=== PATIENT | female | born 1975 | race African-American/Black ===

== ENCOUNTER 2019-11-10 12:54 | Emergency (ER) | payer OTHER, SELFPAY ==
--- NOTE | ~2019-11-10 | CT_ITS ---
EXAMINATION: CT abdomen pelvis w con DATE: 11/10/2019 14:27 INDICATION: Low abdominal pain. TECHNIQUE: Computed tomography (CT) of the abdomen and pelvis was performed with 100 mL Omnipaque 350 intravenous contrast. Automated exposure control and iterative reconstruction technique were employe d. The dose-length product was 686.68 mGy-cm. COMPARISON: None. FINDINGS: The visualized portions of the lung bases are clear without pneumonia or pleural effusion. The heart size is normal. No pericardial effusion. There is a small sliding hiatal hernia. There is a 5 mm cyst in the liver. Calcifications in the spleen are consistent with old granulomatous disease. The gallbladder, pancreas, adrenal glands, and right kidney are normal. There is a 7 mm cyst in left kidney. There are no dilated loops of bowel. The appendix is normal. Tubal ligation clips are noted. There are no pathologically enlarged lymph nodes. There is no free intraperitoneal fluid. There is mi ld lumbar and thoracic spondylosis. IMPRESSION: 1. Small sliding hiatal hernia. Reviewed, dictated and finalized at location A. ON PUNCHER
--- NOTE | ~2019-11-10 | XR_ITS ---
EXAMINATION: XR chest 2V DATE: 11/10/2019 14:05 INDICATION: Hypoxia. Weakness. TECHNIQUE: Frontal and lateral views of the chest were obtained. COMPARISON: None. FINDINGS: A calcified right lung nodule and calcified right hilar and mediastinal lymph nodes are con sistent with old granulomatous disease. No pleural effusion or pneumothorax. The heart size is normal . There are surgical clips in right neck. IMPRESSION: 1. No acute cardiopulmonary disease. Reviewed, dictated and finalized at location A. OL LUNCH MONITOR
[2019-11-10 13:01] VITALS: BP 158/112; PULSE 86; RESP 26; TEMP 36.4; O2SAT 100
--- NOTE | 2019-11-10 13:05 | ED.NAVMDI ---
HPI - Nausea/Vomiting/Diarrhea General Chief complaint: Nausea/Vomiting/Diarrhea Stated complaint: ABD PAIN Time Seen by Provider: 11/10/19 13:02 Source: patient and RN notes reviewed Mode of arrival: EMS Limitations: no limitations History of Present Illness HPI Narrative: Pt is a 44 y/o female who presents to the ED, via EMS, with c/o emesis which began at 0700 this morning. Pt states she had no symptoms last night, but awoke with them this morning. Pt reports vomiting 6 times since onset. Pt reports EMS administered some medication for her nausea without any alleviation of her nausea. She also reports nausea, upper epigastric ABD pain, and lightheadedness, but denies a fever, diarrhea, chest pain, or SOB. Pt states she did not eat anything at all yesterday, but just drank coffee and alcohol at night. She reports drinking socially. She denies anyone around her having an illness which she could have gotten. Pt reports her LNMP was 10/17/2019. Pt reports a PMHx of hypertension which she currently is on medication for. However, she denies taking her medication this morning. She also reports a PMHx of a thyroidectomy and cysts on her bilateral breasts. MD elicited complaint: vomiting Onset (ago): hour(s) (0700 this morning) Associated nausea: Yes Associated abdominal pain: Yes Location of pain: epigastric (upper) Radiation: does not radiate Pain consistency: constant Exacerbating factors: none Relieving factors: none (EMS administered medication without relief) Context: other (did not eat anything all day yesterday, but drank alcohol at night) Associated symptoms: nausea/vomiting (nausea) and other (upper epigastric ABD pain; lightheadedness) Related Data Home Medications Medication Instructions Recorded Confirmed amlodipine 11/10/19 Allergies Allergy/AdvReac Type Severity Reaction Status Date / Time No Known Allergies Allergy Unknown Verified 12/11/11 12:47 Review of Systems Review of Systems: All systems reviewed & are unremarkable except as noted in HPI and below Constitutional: Constitutional: Denies fever(s) Cardiovascular: Cardiovascular: Denies chest pain Respiratory: Respiratory: Denies dyspnea Gastrointestinal: Gastrointestinal: Reports abdominal pain (upper epigastric ABD pain), Denies diarrhea, Reports nausea and Reports vomiting Neurologic: Denies other (lightheadedness) [facility] Past Medical History Medical History (Updated 11/10/19 @ 16:16 by Ludmila Schaeffer MD) Cyst of breast GERD (gastroesophageal reflux disease) Hypertension Surgical History Surgical History (Updated 11/10/19 @ 13:19 by Ceci Mcclendon) H/O removal of cyst Social History Social History (Updated 11/10/19 @ 13:19 by Ceci Mcclendon) Smoking status: Never smoker Alcohol intake: current Gender identity (if verbalized by the patient): Female Exam Narrative: Exam Narrative: GENERAL: Well-appearing, well-nourished, and in no acute distress. HEAD: Normocephalic, atraumatic EYES: PERRLA and EOMI, conjunctiva clear without discharge THROAT:Mucous membranes moist, Oropharynx normal without erythema, exudate, peritonsillar swelling or fluctuance NECK: Supple, without lymphadenopathy or mass RESPIRATORY: No respiratory distress, Airway patent, Respirations non-labored, Clear to auscultation without rales, rhonchi or wheeze HEART: Regular rate and rhythm. No murmur heard. Normal peripheral pulses. ABDOMEN: Soft, bilateral upper quadrant, epigastric , nondistended, normal active bowel sounds. No masses. No rebound or guarding, No organomegaly. EXTREMITIES: No edema, normal strength with full range of motion. SKIN: Warm, dry, normal color without rash NEURO: Alert and oriented x3. CN 2-12 grossly intact. No focal deficits. PSYCH: Normal mood and affect. Course Reevaluation(s) Reevaluation #1: PAtient states she is still nauseated. Date: 11/10/19 Time: 14:11 Reevaluation #2: PAtient has no vomiting
[2019-11-10] MEDS: PROMETHAZINE HCL 25 MG/ML AMPUL 12.5 MG IV PUSH (13:15)
[2019-11-10] MEDS: SODIUM CHLORIDE 0.9% IV 1,000 ML 999 ML IV CONT (13:15)
[2019-11-10 13:27] LABS: Basophils Percent Auto 0.2 % (0.2-1.2); Hematocrit 38.6 % (37.0-47.0); Hemoglobin 13.2 g/dL (12.0-15.0); Immature Granulocyte Absolute 0.04 K/mm3 (0.00-0.031); Immature Granulocyte Percent A 0.4 % (0-0.5); Lymphocytes Absolute Auto 1.32 K/mm3 (0.9-3.2); Lymphocytes Percent Auto 13.8 % (18.3-44.2); Mean Corpuscular HGB Conc 34.2 g/dl (32-36); Mean Corpuscular Hemoglobin 28.4 pg (26-34); Mean Corpuscular Volume 83.2 fl (80-100); Mean Platelet Volume 10.2 fl (7.4-10.4); Monocytes Absolute Auto 0.3 K/mm3 (0.1-0.6); Monocytes Percent Auto 2.7 % (2.6-8.5); Neutrophils Absolute Auto 7.9 K/mm3 (1.3-6.7); Neutrophils Percent Auto 82.9 % (45.5-73.1); Platelet Count Result 346 k/mm3 (150-375); Red Blood Count 4.64 M/mm3 (4.2-5.4); Red Cell Distribution Width 13.2 % (11.5-14.5); White Blood Count 9.6 K/mm3 (4.5-10.0)
[2019-11-10 13:39] LABS: Alanine Aminotransferase 22 U/L (4-35); Albumin Level 4.9 g/dL (3.5-5.1); Alkaline Phosphatase 112 U/L (38-126); Aspartate Amino Transferase 36 U/L (14-36); Bilirubin,Total 0.8 mg/dL (0.2-1.3); Blood Urea Nitrogen 12 mg/dL (7-17); Calcium 9.4 mg/dL (8.4-10.2); Carbon Dioxide 21 mmol/L (22-30); Chloride 103 mmol/L (98-107); Estimated Glomerular Filt Rate > 60; Glucose 127 mg/dL (65-105); Lipase 68 U/L (23-300); Potassium 3.9 mmol/L (3.4-5.0); Sodium 141 mmol/L (137-145)
--- NOTE | 2019-11-10 14:12 | ECG_ITS ---
Measurements Intervals [place] Rate: 87 P: 64 FL: 178 QRS: -12 QRSD: 85 T: 66 QT: 386 QTc: 465 Interpretive Statements SINUS RHYTHM CANNOT RULE OUT SEPTAL INFARCT, AGE INDETERMINATE ABNORMAL ECG Electronically Signed On 11-10-2019 14:57:31 CHAINSTITCH FELLED SEAM OPERATOR by Kana Gill D.O.
[2019-11-10 14:19] LABS: Add Urine Microscopic? YES; Appearance Urine Clear (Clear); Bilirubin Urine Negative (Negative); Blood Urine Negative (Negative); Color Urine Yellow (Yellow); Glucose Urine UA Negative (Negative); Ketones Urine 1+ mg/dL (Negative); Leukocyte Esterase Ur Negative LEU/UL (Negative); Mucus Urine Rare /lpf; Nitrate Urine Negative (Negative); Protein Urine 1+ mg/dL (Negative); RBC Urine 0-2 /hpf (0-2); Specific Grav Ur 1.012 (1.001-1.035); Squamous Epithelial Cell Urine Occasional /hpf (Few); WBC Urine 0-3 /hpf
[2019-11-10] MEDS: PANTOPRAZOLE SODIUM IV 40 MG VIAL IV PUSH (14:19)
[2019-11-10] MEDS: METOCLOPRAMIDE HCL INJ 10 MG/2 ML VIAL IV PUSH (14:19)
[2019-11-10 14:56] VITALS: BP 144/85; PULSE 87
[2019-11-10 14:58] VITALS: BP 134/88
[2019-11-10 14:59] VITALS: BP 123/93; PULSE 100
[2019-11-10] MEDS: ONDANSETRON INJ 4 MG/2 ML VIAL IV PUSH (15:41)
[2019-11-10 16:31] VITALS: BP 141/86; PULSE 88; RESP 16; O2SAT 99
== END 2019-11-10 16:32 | disposition home or self-care (01) ==
PROVIDERS: Emergency Provider General Practice; PCP Internal Medicine
DX: R11.2 Nausea with vomiting, unspecified (principal); K21.9 Gastro-esophageal reflux disease without esophagitis; I10 Essential (primary) hypertension
CPT/HCPCS: 36415; 71046; 74177; 80053; 81001; 81025; 83690; 85025; 93005; 96361; 96374; 96375; 99284; C9113; J0131; J1200; J2405; J2550; J2765; J7030; Q9967

== ENCOUNTER 2019-11-11 08:14 | Emergency (ER) | payer OTHER, SELFPAY ==
[2019-11-11 08:20] VITALS: BP 150/73; PULSE 86; RESP 23; TEMP 36.7; O2SAT 99
--- NOTE | 2019-11-11 08:24 | ED.WEAKNESS ---
HPI - Weakness General Chief complaint: Weakness Stated complaint: weakness Time Seen by Provider: 11/11/19 08:17 Source: patient Mode of arrival: ambulatory Limitations: no limitations History of Present Illness HPI Narrative: A 44 y/o female presents to the ED with c/o generalized weakness. Pt states that she was seen at [place] [facility] yesterday for N/V and ABD pain. She notes that at her ED visit, her CT scan was negative and she was sent home with a prescription for her N/V. Pt adds that her N/V has since subsided, but the ABD pain is still severe. She reports numbness and tingling in her hands and feet and states that her hands are constricting. Pt denies blood in her stool. She has a PMHx of HTN and GERD. Pt has been noncompliant with her medications for the last 2 days due to the N/V. MD Complaint: generalized weakness Onset (ago): day(s) (1) Duration: constant Location: generalized Context: recent illness Associated symptoms: nausea/vomiting (Resolved) and other (Numbness and tingling in hands and feet, hands constricting, ABD pain) Related Data Home Medications Medication Instructions Recorded Confirmed amlodipine 11/10/19 acetaminophen [Acetaminophen Extra 1,000 mg PO Q6H PRN 11/11/19 11/11/19 Strength] naproxen 500 mg PO DAILY 11/11/19 Allergies Allergy/AdvReac Type Severity Reaction Status Date / Time No Known Allergies Allergy Unknown Verified 12/11/11 12:47 Review of Systems Review of Systems: All systems reviewed & are unremarkable except as noted in HPI and below Gastrointestinal: Gastrointestinal: Reports abdominal pain, Denies hematochezia, Reports nausea (Resolved) and Reports vomiting (Resolved) Musculoskeletal: Musculoskeletal: Reports other (Hands constricting ) Neurologic: Reports numbness (Hands and feet) and Reports tingling (Hands and feet) [facility] Past Medical History Medical History Cyst of breast GERD (gastroesophageal reflux disease) Hypertension Surgical History Surgical History H/O removal of cyst Social History Social History Smoking status: Never smoker Alcohol intake: current Gender identity (if verbalized by the patient): Female Exam Const: General: healthy appearing and no acute distress Nutritional Appearance: well nourished HENMT: Mouth: Yes lip normal and Yes moist mucous membranes Eyes: Conjunctivae: conjunctivae normal Pupils: Equal, round and reactive pupils present Resp: Effort & Inspection: normal respiratory effort Auscultation: clear to auscultation bilaterally Cardio: Rate: regular rate Rhythm: regular rhythm Heart sounds: no murmurs GI: GI Palp: Yes Soft to palpation and Yes Tenderness to palpation present (GI) (Epigastric) Auscultation: normal bowel sounds Back/Spine/Pelvis: Back: other (Full ROM) Skin: General skin exam: normal color, dry skin and other (Warm) Neuro: General: patient oriented x3 (Alert) Speech: normal speech Extrem: General: full ROM Psych: Mental Status: mental status grossly normal Affect: Anxious affect present Course Vital Signs Vital signs: Vital Signs Temperature 36.7 C 11/11/19 08:20 Pulse Rate 86 11/11/19 08:20 Respiratory Rate 23 H 11/11/19 08:20 Blood Pressure 150/73 H 11/11/19 08:20 Pulse Oximetry 99 11/11/19 08:20 Temperature 36.7 C 11/11/19 08:20 Pulse Rate 57 L 11/11/19 11:35 Respiratory Rate 14 11/11/19 11:35 Blood Pressure 150/79 H 11/11/19 11:35 Pulse Oximetry 100 11/11/19 11:35 MDM - Weakness Differential Diagnosis Differential diagnosis: Likely anemia, dehydration and other (GERD, gastritis) Medical Records Attestation: I reviewed the patient's medical records. Lab Data Attestation: I reviewed the patient's lab results. Result diagrams: 11/11/19 08:49 11/11/19 08:49 Mary
[2019-11-11 09:01] LABS: Basophils Percent Auto 0.1 % (0.2-1.2); Eosinophils Percent Auto 0.1 % (0-4.4); Hematocrit 39.9 % (37.0-47.0); Hemoglobin 13.4 g/dL (12.0-15.0); Immature Granulocyte Absolute 0.09 K/mm3 (0.00-0.031); Immature Granulocyte Percent A 1.1 % (0-0.5); Lymphocytes Absolute Auto 1.33 K/mm3 (0.9-3.2); Lymphocytes Percent Auto 15.8 % (18.3-44.2); Mean Corpuscular HGB Conc 33.6 g/dl (32-36); Mean Corpuscular Volume 83.3 fl (80-100); Mean Platelet Volume 10.4 fl (7.4-10.4); Monocytes Absolute Auto 0.4 K/mm3 (0.1-0.6); Monocytes Percent Auto 4.2 % (2.6-8.5); Neutrophils Absolute Auto 6.6 K/mm3 (1.3-6.7); Neutrophils Percent Auto 78.7 % (45.5-73.1); Platelet Count Result 349 k/mm3 (150-375); Red Blood Count 4.79 M/mm3 (4.2-5.4); Red Cell Distribution Width 13.3 % (11.5-14.5); White Blood Count 8.4 K/mm3 (4.5-10.0)
[2019-11-11] MEDS: DICYCLOMINE HCL INJ 20 MG/2 ML VIAL IM (09:10)
[2019-11-11] MEDS: PROMETHAZINE HCL 25 MG/ML AMPUL 12.5 MG IV PUSH (09:10)
[2019-11-11] MEDS: PANTOPRAZOLE SODIUM IV 40 MG VIAL IV PUSH (09:10)
[2019-11-11] MEDS: SODIUM CHLORIDE 0.9% IV 1,000 ML 999 ML IV CONT (09:11)
[2019-11-11 09:31] LABS: Alanine Aminotransferase 33 U/L (4-35); Alkaline Phosphatase 117 U/L (38-126); Aspartate Amino Transferase 47 U/L (14-36); Bilirubin,Total 0.9 mg/dL (0.2-1.3); Blood Urea Nitrogen 12 mg/dL (7-17); Calcium 9.7 mg/dL (8.4-10.2); Carbon Dioxide 17 mmol/L (22-30); Chloride 97 mmol/L (98-107); Estimated CRCL calculation 75 ml/min; Estimated Glomerular Filt Rate > 60; Glucose 122 mg/dL (65-105); Lipase 151 U/L (23-300); Potassium 2.7 mmol/L (3.4-5.0); Sodium 136 mmol/L (137-145)
[2019-11-11] MEDS: POTASSIUM CHLORIDE 20 MEQ PACKET (FOR LIQUID) 40 MEQ PO (09:41)
[2019-11-11 09:45] VITALS: BP 155/91; PULSE 71; RESP 17; O2SAT 99
[2019-11-11 11:35] VITALS: BP 150/79; PULSE 57; RESP 14; O2SAT 100
== END 2019-11-11 11:37 | disposition home or self-care (01) ==
PROVIDERS: Emergency Provider Emergency Medicine; PCP Internal Medicine
DX: R10.13 Epigastric pain (principal); F41.9 Anxiety disorder, unspecified; E87.6 Hypokalemia; I10 Essential (primary) hypertension; K21.9 Gastro-esophageal reflux disease without esophagitis
CPT/HCPCS: 36415; 51701; 80053; 81025; 83690; 85025; 96361; 96372; 96374; 96375; 99284; A9270; C9113; J0500; J2550; J7030

== ENCOUNTER 2020-06-15 11:58 | Inpatient (IN) | payer OTHER, SELFPAY ==
[2020-06-15] VITALS (17 sets, daily range): BP systolic 141–185; BP diastolic 82–138; PULSE 72–140; RESP 12–25; TEMP 36.4–37.1; O2SAT 93–100
--- NOTE | ~2020-06-15 | CT_ITS ---
EXAMINATION: CT brain wo con DATE: 06/15/2020 17:28 INDICATION: Vertigo TECHNIQUE: Computed tomography (CT) of the head was performed without intravenous contrast. Sagittal and coronal reconstructions were performed. The mA was adjusted according to patient size. Iterative reconstruction technique was employed. The dose-length product was 605.33 mGy-cm. COMPARISON: None FINDINGS: No acute intracranial hemorrhage, acute infarction or abnormal extra axial fluid collection. Ventricl es are normal and symmetric. No mass/mass effect. The orbits, paranasal sinuses and mastoid air cells are normal. IMPRESSION: 1. Normal head CT. Reviewed, dictated and finalized at location A. IMPRESSION: 1. Normal head CT.
--- NOTE | ~2020-06-15 | CT_ITS ---
EXAMINATION: CT abdomen pelvis w con EXAM DATE: 06/15/2020 13:09 INDICATION: Abdominal pain, vomiting. TECHNIQUE: Spiral CT of the abdomen and pelvis was performed following intravenous injection of 100 m L Omnipaque 350. Axial, coronal and sagittal images were reviewed. The dose-length product (DLP) fo r this examination was 758.04 mGy-cm. The exposure was tailored according to patient size (auto mA e xposure control), and iterative reconstruction (ASIR) was used as additional dose reduction technique . Comparison is made to prior examination from 11/10/2019. FINDINGS: The liver, spleen, adrenal glands and pancreas are unremarkable. Gallbladder is unremarkab le. No biliary obstruction. Portal and splenic veins are patent. Kidneys enhance symmetrically. T here is no hydronephrosis. The uterus is unremarkable. Tubal ligation clips. The bladder is unremar kable. There is no retroperitoneal or pelvic lymphadenopathy. There is nonobstructing appendicolith, the appendix otherwise normal. There is small sliding gastroe sophageal hiatal hernia. There is expected amount of colonic stool. No free intraperitoneal gas. The heart is normal in size. There are no pericardial or pleural effusions. The lung bases are unr emarkable. The bones are unremarkable. IMPRESSION: 1. No acute intra-abdominal findings. 2. Small gastroesophageal hiatal hernia. Reviewed, dictated and finalized at location A.
--- NOTE | 2020-06-15 12:03 | ECG_ITS ---
Measurements Intervals [place] Rate: 98 P: 69 MN: 156 QRS: -34 QRSD: 84 T: 38 QT: 355 QTc: 454 Interpretive Statements SINUS RHYTHM WITH MARKED SINUS ARRHYTHMIA POSSIBLE RIGHT ATRIAL ENLARGEMENT POSSIBLE LEFT ATRIAL ENLARGEMENT LEFT AXIS DEVIATION BORDERLINE ST ABNORMALITY- ANTEROLATERAL LEADS BORDERLINE ECG Electronically Signed On 06-15-2020 12:32:13 CDT by Kana Gill D.O.
[2020-06-15 12:20] LABS: Basophils Percent Auto 0.2 % (0.2-1.2); Eosinophils Percent Auto 0.1 % (0-4.4); Hematocrit 49.1 % (37.0-47.0); Hemoglobin 17.7 g/dL (12.0-15.0); Immature Granulocyte Absolute 0.03 K/mm3 (0.00-0.031); Immature Granulocyte Percent A 0.3 % (0-0.5); Lymphocytes Absolute Auto 1.26 K/mm3 (0.9-3.2); Lymphocytes Percent Auto 14.1 % (18.3-44.2); Mean Corpuscular Hemoglobin 29.3 pg (26-34); Mean Corpuscular Volume 81.2 fl (80-100); Mean Platelet Volume 10.4 fl (7.4-10.4); Monocytes Absolute Auto 0.4 K/mm3 (0.1-0.6); Monocytes Percent Auto 4.5 % (2.6-8.5); Neutrophils Absolute Auto 7.2 K/mm3 (1.3-6.7); Neutrophils Percent Auto 80.8 % (45.5-73.1); Platelet Count Result 392 k/mm3 (150-375); Red Blood Count 6.05 M/mm3 (4.2-5.4); Red Cell Distribution Width 12.9 % (11.5-14.5); White Blood Count 8.9 K/mm3 (4.5-10.0)
[2020-06-15 12:37] LABS: Anion Gap 21 mmol/L (8-16); Blood Urea Nitrogen 15 mg/dL (7-17); Calcium 9.7 mg/dL (8.4-10.2); Carbon Dioxide 25 mmol/L (22-30); Chloride 88 mmol/L (98-107); Estimated CRCL calculation 64 ml/min; Estimated Glomerular Filt Rate > 60; Glucose 158 mg/dL (65-105); Potassium 2.3 mmol/L (3.4-5.0); Sodium 134 mmol/L (137-145)
--- NOTE | 2020-06-15 13:00 | ED.GENADULT ---
HPI - General Adult General Chief complaint: Dizziness Stated complaint: dizziness, vomiting Time Seen by Provider: 06/15/20 12:04 Source: patient and family History of Present Illness HPI narrative: 45 years old -[place] female presents with lower abdominal pain, dizziness and nausea. Started 3 hours prior to arrival to the emergency room. Patient denies any fever, chills, vomiting, diarrhea, constipation, vaginal bleeding or discharge or urinary symptoms Related Data Home Medications Medication Instructions Recorded Confirmed amlodipine 11/10/19 acetaminophen [Acetaminophen Extra 1,000 mg PO Q6H PRN 11/11/19 11/11/19 Strength] naproxen 500 mg PO DAILY 11/11/19 Allergies Allergy/AdvReac Type Severity Reaction Status Date / Time No Known Allergies Allergy Unknown Verified 06/15/20 12:13 Review of Systems Review of Systems: Narrative: CONSTITUTIONAL: Denies fever, chills, or sweats. EYES: Denies visual changes, redness, or discharge. ENT: Denies rhinorrhea, congestion, sore throat, or otalgia. CARDIOVASCULAR: Denies chest pain, palpitations, or edema. RESPIRATORY: Denies cough or dyspnea. GASTROINTESTINAL: Denies abdominal pain, nausea, vomiting, or diarrhea. GENITOURINARY: Denies dysuria or hematuria. SKIN: Denies rash or itching. MUSCULOSKELETAL: Denies back pain, joint pain, or myalgia. NEUROLOGIC: Denies headache, numbness, or weakness. PSYCHIATRIC: Denies anxiety or depression. [facility] Past Medical History Medical History Cyst of breast GERD (gastroesophageal reflux disease) Hypertension Surgical History Surgical History H/O removal of cyst Social History Social History Smoking status: Never smoker Alcohol intake: current Gender identity (if verbalized by the patient): Female Exam Narrative: Exam Narrative: General appearance: Well-developed, well-nourished Skin: Normal color Head: Normocephalic, nontraumatic Eyes: Clear conjunctiva ENT: Oropharynx normal, ears normal, nose normal Neck: Supple, nontender Chest and respiratory: Airway patent, no respiratory distress, no accessory muscle use Heart: Regular rate/rhythm Abdomen: Severe diffuse tenderness lower abdomen bilaterally, slight guarding, no rebound, quiet bowel sounds Vascular: Normal peripheral pulses, normal capillary refill. Musculoskeletal: Normal range of motion, nontender back Neurologic: Alert and oriented ?3, RISK CONTROL CONSULTANT is normal as tested, no gross motor deficit Course Course Emergency Course: Improving Vital Signs Vital signs: Vital Signs Temperature 37.1 C 06/15/20 12:05 Pulse Rate 105 H 06/15/20 12:05 Respiratory Rate 25 H 06/15/20 12:05 Blood Pressure 154/108 H 06/15/20 12:05 Pulse Oximetry 97 06/15/20 12:05 Temperature 37.1 C 06/15/20 12:05 Pulse Rate 83 06/15/20 13:31 Respiratory Rate 16 06/15/20 13:31 Blood Pressure 185/105 H 06/15/20 13:31 Pulse Oximetry 93 06/15/20 13:31 Medical Decision Making MDM Narrative Medical decision making narrative: Patient presents with dizziness, lower abdominal pain. My differential diagnosis is appendicitis, cholecystitis, diverticulitis, urinary tract infection, kidney stone, benign positional vertigo, electrolyte imbalance Labs, CT abdomen and pelvis with IV contrast ordered Blood work-up showed hypokalemia of unknown etiology, patient amlodipine which does not drop the potassium level, CT abdomen and pelvis showed no acute abnormality to explain patient complaint. IV fluid, potassium IV and potassium orally
[2020-06-15] MEDS: ONDANSETRON INJ 4 MG/2 ML VIAL IV PUSH ×2 (13:16→18:04)
[2020-06-15] MEDS: MORPHINE SULFATE (*CRX) 4 MG/ML INJ IV PUSH (13:16)
[2020-06-15] MEDS: SODIUM CHLORIDE 0.9% IV 1,000 ML 999 ML IV CONT (13:23)
--- NOTE | 2020-06-15 15:30 | PC.NURSE ---
Pt attempted to ambulate to bathroom with this RN assisting. Pt got right outside of room and became dizzy and weak. Wheelchair provided for patient and assisted to bathroom.
[2020-06-15] MEDS: POTASSIUM CHLORIDE 20 MEQ TABLET 40 MEQ PO (15:36)
[2020-06-15] MEDS: MECLIZINE HCL 25 MG TABLET PO (15:51)
[2020-06-15] MEDS: diazePAM (*CRX) 5 MG TABLET PO (15:51)
[2020-06-15] MEDS: LABETALOL HCL INJ 100 MG/20 ML VIAL 20 MG IV PUSH (16:21)
[2020-06-15] MEDS: SODIUM CHLORIDE 0.9% IV 1,000 ML 125 ML IV CONT (18:03)
[2020-06-15] MEDS: POTASSIUM CHLORIDE 20 MEQ TABLET.ER 40 MEQ PO (18:06)
--- NOTE | 2020-06-15 18:28 | ADMGEN ---
This patient, Hanny Heller, was admitted to Medical Room 253-01. Patient/family oriented to hospital policies and general routines including ID bracelet, bed and alarms, visiting hours, pain management, procedures, bathroom and other care routines, personal items, smoking policy, room service/diet, and visiting hours. Valuables list has been completed. Information on how to activate the Rapid Response Team has been discussed. Patient/Family are encouraged to report perceived risks to care and to ask questions if they do not understand what they are told or what they should do.
--- NOTE | 2020-06-15 19:00 | PM.IMHP ---
H&P: HPI History of Present Illness Date/Time: 06/15/20 19:00 Chief complaint: Dizzy, nausea, vomiting. Narrative: Hanny Heller is a 45-year-old female with hypertension who presented to the emergency department earlier this afternoon via private vehicle from home for evaluation of nausea, vomiting, and dizziness. On Friday she developed nausea and vomiting which has persisted since the outset. She has not been able to hold down any solid foods and she has only been able to hold down small amounts of liquid. Her abdomen is diffusely tender, which she attributes to the vomiting. A day or so after the nausea and vomiting began, she developed dizziness that sounds more like vertigo in that she describes feelings of spinning, worse with position changes. Additionally she reports chills and occasional sweats as well as a diffuse aching headache and muscle cramping, mainly in the hands and fingers. She has not been sleeping well due to ongoing nausea and vomiting as well as the vertigo. She was seen by her primary care provider on Friday and was tested for COVID, and that was negative. She denies sick contacts. No fever, sinus congestion, rhinorrhea, otalgia, or odynophagia. No cough or shortness of breath. Review of Systems Review of Systems: Narrative: Twelve systems were reviewed with pertinent positives and negatives as per HPI. Weight has been stable. She has not been able to keep down her medications. No fever. No focal weakness or paresthesias. She denies acute auditory and visual changes. No aural fullness or tinnitus. No chest pain, pleuritic pain, palpitations, or feelings of racing heart. No cough or shortness of breath. She denies edema, orthopnea, and PND. She has not had a bowel movement since Friday. Reports increasing GERD symptoms the last couple of days. Her urine has been a bit dark the last couple of days and she believe she is dehydrated. No dysuria. Except as documented, all other systems were reviewed and are negative. [facility] Past Medical History Medical History (Updated 06/15/20 @ 19:51 by Meenu Chavez PA-C) Gastroesophageal reflux Hypertension Surgical History Surgical History (Updated 06/15/20 @ 19:47 by Meenu Chavez PA-C) History of bilateral breast biopsy Benign pathology. History of thyroidectomy For thyroid goiter. Family History Family History (Updated 06/15/20 @ 19:48 by Meenu Chavez PA-C) Other Cancer Diabetes mellitus Hypertension Social History Social History (Updated 06/15/20 @ 19:49 by Meenu Chavez PA-C) Social History: Surrogate decision maker: John, . Code status:Full code. Smoking status: Former smoker Tobacco type: cigarettes Alcohol intake: current Drinks per week: 2 Substance use: former Substance use type: marijuana Additional living arrangements comments: Resides in [place] with her in 4 children. 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 Gender identity (if verbalized by the patient): Female Spiritual care concerns: No Meds Home Medications and Allergies Home Medications Medication Instructions Recorded Confirmed Type amlodipine 10 mg PO DAILY 06/15/20 06/15/20 History calcium carbonate-vitamin D3 2 tablet PO DAILY 06/15/20 06/15/20 History [Calcium 500 With D] cholecalciferol (vitamin D3) 125 mcg PO DAILY 06/15/20 06/15/20 History [Vitamin D3] multivitamin [Daily Multi-Vitamin] 1 tablet PO DAILY 06/15/20 06/15/20 History omeprazole 40 mg PO DAILY 06/15/20 06/15/20 History Allergies Allergy/AdvReac Type Severity Reaction Status Date / Time No Known Allergies Allergy Unknown Verified 06/15/20 12:13 Vital Signs Vital Signs - 24 hr 06/15/20 12:05 06/15/20 12:17 06/15/20 12:31 Temperature 98.7 F Pulse Rate 105 H 140 H 94 Respiratory Rate 25 H 14 Blood Pressure 154/108 H 142/103 H 176/115
[2020-06-15 19:08] LABS: Hematocrit 44.4 % (37.0-47.0); Hemoglobin 15.9 g/dL (12.0-15.0)
[2020-06-15 19:21] LABS: Alanine Aminotransferase 28 U/L (4-35); Albumin Level 4.8 g/dL (3.5-5.1); Alkaline Phosphatase 88 U/L (38-126); Aspartate Amino Transferase 25 U/L (14-36); Bilirubin,Total 1.5 mg/dL (0.2-1.3)
[2020-06-15 19:22] LABS: Anion Gap 12 mmol/L (8-16); Blood Urea Nitrogen 12 mg/dL (7-17); Calcium 8.6 mg/dL (8.4-10.2); Carbon Dioxide 33 mmol/L (22-30); Chloride 88 mmol/L (98-107); Estimated CRCL calculation 90 ml/min; Estimated Glomerular Filt Rate > 60; Glucose 131 mg/dL (65-105); Potassium 2.8 mmol/L (3.4-5.0); Sodium 133 mmol/L (137-145)
[2020-06-15 19:34] LABS: Hemoglobin A1C 4.8 % (<5.7)
[2020-06-15] MEDS: PANTOPRAZOLE SODIUM IV 40 MG VIAL IV PUSH (21:04)
[2020-06-16] VITALS (16 sets, daily range): BP systolic 135–182; BP diastolic 45–115; PULSE 78–111; RESP 12–20; TEMP 36.1–36.8; O2SAT 100; BMI 31.8
[2020-06-16] MEDS: ONDANSETRON INJ 4 MG/2 ML VIAL IV PUSH ×2 (03:10→08:53)
[2020-06-16 03:39] LABS: Potassium 3.4 mmol/L (3.4-5.0)
[2020-06-16 04:05] LABS: Creatinine Urine 48.9 mg/dL; Total Protein Urine Random 36 mg/dL
[2020-06-16 04:25] LABS: Potassium Urine Random 12.8 meq/L; Sodium Urine Random 44 meq/L
[2020-06-16 06:04] LABS: Hematocrit 40.4 % (37.0-47.0); Hemoglobin 14.6 g/dL (12.0-15.0); Mean Corpuscular HGB Conc 36.1 g/dl (32-36); Mean Corpuscular Hemoglobin 29.6 pg (26-34); Mean Corpuscular Volume 81.8 fl (80-100); Mean Platelet Volume 10.3 fl (7.4-10.4); Platelet Count Result 297 k/mm3 (150-375); Red Blood Count 4.94 M/mm3 (4.2-5.4); White Blood Count 7.7 K/mm3 (4.5-10.0)
[2020-06-16 06:14] LABS: Anion Gap 9 mmol/L (8-16); Blood Urea Nitrogen 8 mg/dL (7-17); Calcium 8.2 mg/dL (8.4-10.2); Carbon Dioxide 30 mmol/L (22-30); Chloride 95 mmol/L (98-107); Estimated CRCL calculation 91 ml/min; Estimated Glomerular Filt Rate > 60; Glucose 106 mg/dL (65-105); Magnesium 2.1 mg/dL (1.6-2.3); Potassium 3.2 mmol/L (3.4-5.0); Sodium 134 mmol/L (137-145)
[2020-06-16 06:47] LABS: Cortisol Baseline 9.69 ug/dL
[2020-06-16] MEDS: SODIUM CHLORIDE 0.9% IV 1,000 ML 100 ML IV CONT ×2 (07:57→20:30)
[2020-06-16] MEDS: amLODIPine BESYLATE 5 MG TABLET 10 MG PO (08:00)
[2020-06-16] MEDS: MULTIVITAMINS THERAPEUTIC TAB (*BKC) 1 TABLET PO (08:00)
[2020-06-16] MEDS: PANTOPRAZOLE SODIUM IV 40 MG VIAL IV PUSH ×2 (08:00→20:27)
[2020-06-16] MEDS: MECLIZINE HCL 12.5 MG TABLET PO ×4 (08:00→20:27)
[2020-06-16] MEDS: CHOLECALCIFEROL 1,000 UNITS TABLET 5000 UNITS PO (08:00)
--- NOTE | 2020-06-16 15:06 | PM.IMPN ---
Progress Note: A&P Assessment and Plan (1) Dehydration: Code(s): E86.0 - Dehydration Status: Acute Assessment and Plan: She has been admitted under observation for further treatment of dehydration and hypokalemia secondary to poor oral intake and vomiting over the last 4 to 5 days. Her labs and electrolytes have improved overnight with IV fluid hydration. She appears euvolemic at this time we are just slowly advancing her diet as tolerated to prevent further vomiting and recurrence of dehydration. Continue monitoring fluid status. (2) Nausea and vomiting: Code(s): R11.2 - Nausea with vomiting, unspecified Status: Acute Assessment and Plan: Most likely viral gastroenteritis in nature. No CT abdominal findings for her symptoms. She is still having some nausea in not able to advance her diet from a full liquid diet at this time. P.r.n. antiemetics given. Continue monitoring, slowly advance diet as tolerated. (3) Vertigo: Code(s): R42 - Dizziness and giddiness Status: Acute Assessment and Plan: She reported some vertigo but it is much improved today after receiving some IV fluids. She denies much dizziness at all at this time. We are continuing some meclizine for her symptoms. (4) Hypokalemia: Code(s): E87.6 - Hypokalemia Status: Acute Assessment and Plan: Patient's potassium was low this morning she was given IV K rider. Her magnesium was normal. Will recheck potassium in the morning and supplement as needed. (5) Hyperglycemia: Code(s): R73.9 - Hyperglycemia, unspecified Status: Acute Assessment and Plan: Patient's hemoglobin A1c is 4.8 which within normal range. No need to further evaluate monitor. (6) Hypertension: Code(s): I10 - Essential (primary) hypertension Status: Acute Assessment and Plan: Blood pressure has been elevated since arrival. She did take her amlodipine this morning. Most recent blood pressure was 130 systolic which is improved. Will continue monitoring blood pressure and make adjustments as necessary. (7) Gastroesophageal reflux: Code(s): K21.9 - Gastro-esophageal reflux disease without esophagitis Status: Acute Assessment and Plan: Continue PPI therapy while she is here due to her GI upset, nausea vomiting. Time Spent With Patient Time with patient: 25 - 35 minutes Subjective Date/time seen: 06/16/20 15:06 Interval history: Date of service 06/16/2020: The patient reports feeling slightly better today. She tried eat a clear liquid diet and after a few bites her as a median cream being with hematochezia strict discomfort and she became nauseous. She denies any vomiting since being admitted. She has not had a bowel movement since Friday, and does feel bloated. She does not believe she has eaten enough over the last few days to have a bowel movement so she does not feel constipated. She denies any chest pain, shortness of breath, cough, fever, chills, leg swelling, calf pain, lightheadedness, dizziness or any other symptoms at this time. Review of Systems Review of Systems: All systems reviewed & are unremarkable except as noted in HPI and below Exam Narrative: Exam Narrative: General: 45-year-old woman sitting up in bed watching TV. Appears comfortable. In no acute distress. Skin: No jaundice or cyanosis. Good skin turgor. Neck: Full range of motion. Supple. Respiratory: Lungs are clear to auscultation bilaterally. No bony chest wall tenderness. Cardiovascular: The heart has a regular rate and rhythm without murmur. Low
[2020-06-17] VITALS (8 sets, daily range): BP systolic 128–149; BP diastolic 77–97; PULSE 75–112; RESP 18; TEMP 36.3–36.5; O2SAT 100
[2020-06-17 06:14] LABS: Anion Gap 2 mmol/L (8-16); Blood Urea Nitrogen 9 mg/dL (7-17); Calcium 8.3 mg/dL (8.4-10.2); Carbon Dioxide 35 mmol/L (22-30); Chloride 99 mmol/L (98-107); Estimated CRCL calculation 80 ml/min; Estimated Glomerular Filt Rate > 60; Glucose 91 mg/dL (65-105); Potassium 3.4 mmol/L (3.4-5.0); Sodium 136 mmol/L (137-145)
[2020-06-17] MEDS: CHOLECALCIFEROL 1,000 UNITS TABLET 5000 UNITS PO (08:49)
[2020-06-17] MEDS: MECLIZINE HCL 12.5 MG TABLET PO ×2 (08:50→12:13)
[2020-06-17] MEDS: MULTIVITAMINS THERAPEUTIC TAB (*BKC) 1 TABLET PO (08:50)
[2020-06-17] MEDS: amLODIPine BESYLATE 5 MG TABLET 10 MG PO (08:50)
[2020-06-17] MEDS: PANTOPRAZOLE SODIUM IV 40 MG VIAL IV PUSH (08:55)
--- NOTE | 2020-06-17 14:30 | PM.DS ---
DS: Admitting Diagnosis Admitting Diagnosis Admitting Diagnosis: Dizzy, nausea, vomiting. DS: Discharge Diagnosis Discharge Diagnosis (1) Dehydration: Code(s): E86.0 - Dehydration Status: Acute Assessment and Plan: She has been admitted under observation for further treatment of dehydration and hypokalemia secondary to poor oral intake and vomiting over the last 4 to 5 days. Her labs and electrolytes have improved overnight with IV fluid hydration. She appears euvolemic at this time and we were able to advance diet to regular without any issues. She is feeling better and stable for discharge at this time. (2) Nausea and vomiting: Code(s): R11.2 - Nausea with vomiting, unspecified Status: Acute Assessment and Plan: Most likely viral gastroenteritis in nature. No CT abdominal findings for her symptoms. Feeling better now. NO more Nausea or vomiting. Stable for discharge. (3) Vertigo: Code(s): R42 - Dizziness and giddiness Status: Acute Assessment and Plan: She reported some vertigo prior to arrival. It is now resolved. Most likely from dehydration but we were also administering Meclizine. Will continue Meclizine PRN for dizziness. (4) Hypokalemia: Code(s): E87.6 - Hypokalemia Status: Acute Assessment and Plan: Patient's potassium was normal today. Most likely from N/V and then again from IV fluids and dilution. Will have her follow up with PCP after discharge. (5) Hyperglycemia: Code(s): R73.9 - Hyperglycemia, unspecified Status: Acute Assessment and Plan: Patient's hemoglobin A1c is 4.8 which within normal range. No need to further evaluate monitor. (6) Hypertension: Code(s): I10 - Essential (primary) hypertension Status: Acute Assessment and Plan: Blood pressure is much improved since arrival. Continue home medications. (7) Gastroesophageal reflux: Code(s): K21.9 - Gastro-esophageal reflux disease without esophagitis Status: Acute Assessment and Plan: Continue PPI DS: Summary Hospital Course Reason for hospitalization: Patient is a 45-year-old woman with a history of hypertension, GERD, who presented to emergency department with nausea, vomiting, abdominal pain and dizziness over the last 4 days. She is going to down in the last 1-2 days which is why she came to the hospital. Initial vitals showed Temperature 98.7?, elevated blood pressure 154/108, tachycardic heart rate 105, respiratory rate 25, oxygen saturation 97% on room air. Initial labs showed hemoconcentrated with a hemoglobin of 17, hematocrit at 49%, Hyponatremia and 134, hypokalemia at 2.3, creatinine was 1.0, BUN 15, and slightly elevated glucose at 158. CT abdomen pelvis showed no acute intra abdominal abnormality other than small gastroesophageal hiatal hernia. CT head due to dizziness showed normal findings. She was admitted into the hospital under observation status for dehydration, nausea/vomiting/abdominal pain for IV fluid hydration, slow advancement of her diet and monitoring of her symptoms. Please see above under each diagnosis what transpired during her admission. Status at Discharge Cognitive/behavioral status at discharge: Stable, improved. Time Spent with Patient Time attestation: Total time spent providing and/or coordinating discharge services: Time spent: Greater than 30 minutes Exam Narrative: Exam Narrative: General: 45-year-old woman laying on her left side resting. Appears comfortable. In no acute distress. Skin:
== END 2020-06-17 16:50 | disposition home or self-care (01) | DRG 641 ==
LOC: ANHED 14:54 → ANH2MED 16:29
PROVIDERS: Emergency Medicine; Physician Assistant; Admitting Provider Internal Medicine; Emergency Provider Emergency Medicine; PCP Internal Medicine; Visit Provider Physician Assistant
DX: E87.1 Hypo-osmolality and hyponatremia (principal); E87.6 Hypokalemia; D75.1 Secondary polycythemia; I10 Essential (primary) hypertension; K21.9 Gastro-esophageal reflux disease without esophagitis; R42 Dizziness and giddiness; E86.0 Dehydration; R73.9 Hyperglycemia, unspecified; Z23 Encounter for immunization
CPT/HCPCS: 36415; 70450; 74177; 80048; 80076; 82533; 82570; 83036; 83735; 84132; 84133; 84156; 84300; 84443; 85014; 85018; 85025; 85027; 90471; 90653; 93005; 96361; 96365; 96366; 96375; 99285; A9270; C9113; G0008; G0378; J0131; J2270; J2405; J3480; J7030; Q9967

== ENCOUNTER 2021-06-28 09:39 | Emergency (ER) | payer OTHER, SELFPAY ==
[2021-06-28 09:57] VITALS: BP 148/119; PULSE 83; RESP 16; TEMP 36.9; O2SAT 100
--- NOTE | 2021-06-28 10:56 | ED.ABDPAIN ---
HPI - Abdominal Pain General Chief Complaint: Abdominal Pain Stated Complaint: abd pain/vomiting Time Seen by Provider: 06/28/21 10:39 Source: patient and RN notes reviewed Mode of arrival: ambulatory Limitations: no limitations History of Present Illness HPI narrative: Patient presents today complaining of diffuse abdominal pain, nausea, vomiting x2-3 days after drinking 3 mixed drinks the night before onset. States she has not been able to keep anything down, but has been trying to drink in between her vomiting episodes. She last vomited this morning. She rates her abdominal pain 06/24. 1 year ago, she had a similar episode and was seen in the ER at [facility] and was found to have hypokalemia. Since she has been vomiting, she has been unable to keep down her amlodipine. BP upon arrival was 148/119. Related Data Home Medications Medication Instructions Recorded Confirmed amlodipine 10 mg PO DAILY 06/15/20 06/15/20 calcium carbonate-vitamin D3 2 tablet PO DAILY 06/15/20 06/15/20 [Calcium 500 With D] cholecalciferol (vitamin D3) 125 mcg PO DAILY 06/15/20 06/15/20 [Vitamin D3] multivitamin [Daily Multi-Vitamin] 1 tablet PO DAILY 06/15/20 06/15/20 omeprazole 40 mg PO DAILY 06/15/20 06/15/20 Allergies Allergy/AdvReac Type Severity Reaction Status Date / Time No Known Allergies Allergy Unknown Verified 06/15/20 12:13 Review of Systems Review of Systems: CONSTITUTIONAL: Denies body aches, fever, chills, or sweats. EYES: Denies visual changes, redness, or discharge. ENT: Denies rhinorrhea, congestion, sore throat, or otalgia. CARDIOVASCULAR: Denies chest pain, palpitations, or edema. RESPIRATORY: Denies cough or dyspnea. GASTROINTESTINAL: Denies diarrhea. +Nausea, vomiting, abdominal pain GENITOURINARY: Denies dysuria or hematuria. SKIN: Denies rash, itching, or wounds. MUSCULOSKELETAL: Denies back pain, joint pain, or myalgia. NEUROLOGIC: Denies headache, numbness, tingling, or weakness. PSYCH: Denies depression or anxiety. [facility] Past Medical History Medical History Gastroesophageal reflux Hypertension Surgical History Surgical History History of bilateral breast biopsy Benign pathology. History of thyroidectomy For thyroid goiter. Family History Family History Other Cancer Diabetes mellitus Hypertension Social History Social History Social History: Surrogate decision maker: John, . Code status:Full code. Smoking status: Former smoker Tobacco type: cigarettes Alcohol intake: current Drinks per week: 2 Substance use: former Substance use type: marijuana Additional living arrangements comments: Resides in [place] with her in 4 children. 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 Gender identity (if verbalized by the patient): Female Spiritual care concerns: No Comments At time of signature, I have reviewed and agree with nursing past medical, surgical, social and family history unless otherwise noted. Please see nursing chart for further information. There is no relevant family history pertinent to the presenting complaint Exam Narrative: GENERAL: Well-appearing, well-nourished, and in no acute distress. HEAD: Normocephalic, atraumatic. EYES: EOMI. No redness or drainage. Conjunctivae normal. ENT: Mucous membranes pink and tacky. Nares clear. No rhinorrhea. TMs normal bilaterally. Throat normal. Uvula midline. NECK: Normal AROM. Supple. No lymphadenopathy. CHEST: No respiratory distress. Clear to auscultation. HEART: Regular rate and rhythm. No murmur appreciated. Normal peripheral pulses. ABDOMEN: Soft, nondistended, no
[2021-06-28] MEDS: PROMETHAZINE HCL 25 MG/ML AMPUL IM (10:59)
== END 2021-06-28 11:25 | disposition short-term general hospital (02) ==
PROVIDERS: Emergency Provider Nurse Practitioner; PCP Internal Medicine
DX: R10.9 Unspecified abdominal pain (principal); R11.2 Nausea with vomiting, unspecified; Z87.891 Personal history of nicotine dependence; K21.9 Gastro-esophageal reflux disease without esophagitis; I10 Essential (primary) hypertension
CPT/HCPCS: 96372; 99213; G0463; J2550

== ENCOUNTER 2021-06-28 11:24 | Emergency (ER) | payer OTHER, SELFPAY ==
[2021-06-28 11:36] VITALS: BP 154/95; PULSE 64; RESP 14; TEMP 36.7; O2SAT 100
[2021-06-28 11:50] LABS: Basophils Percent Auto 0.1 % (0.2-1.2); Hematocrit 42.7 % (37.0-47.0); Hemoglobin 15.1 g/dL (12.0-15.0); Immature Granulocyte Absolute 0.04 K/mm3 (0.00-0.031); Immature Granulocyte Percent A 0.5 % (0-0.5); Lymphocytes Absolute Auto 2.02 K/mm3 (0.9-3.2); Lymphocytes Percent Auto 24.1 % (18.3-44.2); Mean Corpuscular HGB Conc 35.4 g/dl (32-36); Mean Corpuscular Hemoglobin 29.7 pg (26-34); Mean Corpuscular Volume 84.1 fl (80-100); Mean Platelet Volume 10.3 fl (7.4-10.4); Monocytes Absolute Auto 0.4 K/mm3 (0.1-0.6); Monocytes Percent Auto 5.3 % (2.6-8.5); Neutrophils Absolute Auto 5.9 K/mm3 (1.3-6.7); Platelet Count Result 365 k/mm3 (150-375); Red Blood Count 5.08 M/mm3 (4.2-5.4); Red Cell Distribution Width 13.3 % (11.5-14.5); White Blood Count 8.4 K/mm3 (4.5-10.0)
[2021-06-28 12:08] LABS: Alanine Aminotransferase 23 U/L (4-35); Albumin Level 5.1 g/dL (3.5-5.1); Alkaline Phosphatase 98 U/L (38-126); Anion Gap 12 mmol/L (8-16); Aspartate Amino Transferase 33 U/L (14-36); Blood Urea Nitrogen 14 mg/dL (7-17); Calcium 9.4 mg/dL (8.4-10.2); Carbon Dioxide 31 mmol/L (22-30); Chloride 92 mmol/L (98-107); Estimated Glomerular Filt Rate > 60; Glucose 112 mg/dL (65-110); Lipase 113 U/L (23-300); Potassium 2.9 mmol/L (3.4-5.0); Sodium 135 mmol/L (137-145)
[2021-06-28 12:19] LABS: Add Urine Microscopic? YES; Appearance Urine Clear (Clear); Bilirubin Urine Negative (Negative); Blood Urine 2+ (Negative); Color Urine Yellow (Yellow); Glucose Urine UA Negative (Negative); Ketones Urine 1+ mg/dL (Negative); Leukocyte Esterase Ur Negative LEU/UL (Negative); Mucus Urine Rare /lpf; Nitrate Urine Negative (Negative); Protein Urine 2+ mg/dL (Negative); Specific Grav Ur 1.015 (1.001-1.035); Squamous Epithelial Cell Urine Rare /hpf (Few); Urobilinogen Urine Negative mg/dL (<2.0); WBC Urine 0-3 /hpf
--- NOTE | 2021-06-28 12:34 | PC.NURSE ---
patient states that the wait is too long. was sent by urgent care who was said to have told patient that there would be a room waiting for her so she felt as though she should not have to wait
== END 2021-06-29 05:09 | disposition left against medical advice (07) ==
PROVIDERS: Emergency Provider Emergency Medicine; PCP Internal Medicine
DX: R11.2 Nausea with vomiting, unspecified (principal)
CPT/HCPCS: 36415; 80053; 81001; 81025; 83690; 85025; 99199

== ENCOUNTER 2024-11-09 09:27 | Emergency (ER) | payer BC, SELFPAY ==
[2024-11-09 09:44] VITALS: BP 125/75; PULSE 97; RESP 16; TEMP 37.2; O2SAT 98
--- NOTE | 2024-11-09 10:16 | ED.URI ---
HPI - URI/Sore Throat General Chief Complaint: Upper Respiratory Infection Stated Complaint: BO,tired,cough,bodyaches,stomach pressure Time Seen by Provider: 11/09/24 10:37 Source: patient, RN notes reviewed and old records reviewed Mode of arrival: ambulatory Limitations: no limitations History of Present Illness HPI Narrative: Patient presents with complaints of flu like symptoms that began yesterday. She has been taking [id number] medications intermittently. She denies any injury or trauma, she is not in any obvious distress. Related Data Home Medications ?Medication ?Instructions ?Recorded ?Confirmed ?Last Taken ?Type amlodipine 10 mg tablet 10 mg PO DAILY 06/15/20 06/15/20 Unknown History calcium 500 mg (as 2 tablet PO DAILY 06/15/20 06/15/20 Unknown History carbonate)-vitamin D3 10 mcg (400 unit) tablet (Calcium 500 With D) cholecalciferol (vitamin D3) 125 125 mcg PO DAILY 06/15/20 06/15/20 Unknown History mcg (5,000 unit) tablet (Vitamin D3) multivitamin (Daily Multi-Vitamin 1 tablet PO DAILY 06/15/20 06/15/20 Unknown History tablet) omeprazole 40 mg capsule,delayed 40 mg PO DAILY 06/15/20 06/15/20 Unknown History release Allergies Allergy/AdvReac Type Severity Reaction Status Date / Time No Known Allergies Allergy Unknown Verified 06/15/20 12:13 Review of Systems Review of Systems: All systems reviewed & are unremarkable except as noted in HPI and below Constitutional: Constitutional: Reports no additional constitutional complaints, Reports body ache(s), Reports chills, Reports fever(s), Reports headache(s) and Reports lethargy ENT: Reports system reviewed and no additional complaints, except as documented, Reports nasal congestion, Reports nasal discharge and Reports sore throat Cardiovascular: Cardiovascular: Reports no additional cardiovascular complaints Respiratory: Respiratory: Reports no additional respiratory complaints and Reports cough Gastrointestinal: Gastrointestinal: Reports no additional gastrointestinal complaints PMFSH Past Medical History Medical History Gastroesophageal reflux Hypertension Surgical History Surgical History History of bilateral breast biopsy Benign pathology. History of thyroidectomy For thyroid goiter. Family History Family History Other Cancer Diabetes mellitus Hypertension Social History Social History Social History: Surrogate decision maker: John . Code status:Full code. Smoking status: Former smoker Tobacco type: cigarettes Alcohol intake: current Drinks per week: 2 Substance use: former Substance use type: marijuana Additional living arrangements comments: Resides in [place] with her in 4 children. 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 Gender identity (if verbalized by the patient): Female Spiritual care concerns: No Comments At the time of my signature, I reviewed and agree with the nursing past medical, surgical, social, and family history. There is no relevant family history pertinent to the patient complaint. Exam Const: General: cooperative, no acute distress, alert and awake Orientation/consciousness: oriented to person, oriented to place and oriented to time HENMT: Head: normal to inspection Ears: TM's normal bilaterally Mouth: Yes moist mucous membranes Throat: posterior oropharynx abnormal erythema Resp: Effort & Inspection: normal respiratory effort and able to speak in complete sentences Auscultation: clear to auscultation bilaterally, no crackles, no rales, no rhonchi and no wheezes Cardio: Palpation: normal PMI Rate: regular rate Rhythm: regular rhythm Heart sounds: S1 normal heart sound present and S2 normal heart sound present Neuro: General: oriented to person, oriented to place and oriented to time Cranial nerves: Yes CN's II-XII intact bilaterally Psych: Appearance: grossly normal Thought process: Normal thought process present Insight: Good insight present (Psych) Judgement: Good judgement present (Psych) Course Course Level of Care: Express Care Visit Vital Signs Vital signs: Vital Signs Temperature 98.9 F 11/09/24 09:44 Pulse Rate 97 11/09/24 09:44 Respiratory Rate 16 11/09/24 09:44 Blood Pressure 125/75 11/09/24 09:44 Pulse Oximetry 98 11/09/24 09:44 Oxygen Delivery Room Air 11/09/24 09:44 Temperature 98.9 F 11/09/24 09:44 Pulse Rate 97 11/09/24 09:44 Respiratory Rate 16 11/09/24 09:44 Blood Pressure 125/75 11/09/24 09:44 Pulse Oximetry 98 11/09/24 09:44 Oxygen Delivery Room Air 11/09/24 09:44 Reviewed MDM - URI/Sore Throat MDM Narrative Medical decision making narrative: Negative COVID, negative flu, negative strep. Symptoms likely viral in origin. Supportive care measures discussed. Discharge instructions reviewed with patient, as well as provided in writing per nursing staff. The instructions also include specific and strict return/GO TO THE ER as well as f/u information. All questions have been answered, and the patient deny any further questions with discharge and discharge plan. Some parts of this dictation were generated by voice recognition software and may contain typographical and/or grammatical inaccuracies. Differential Diagnosis Differential diagnosis: Likely upper respiratory infection, otitis media, viral infection, influenza and pharyngitis Medical Records Attestation: I reviewed the patient's medical records. Lab Data Attestation: I reviewed the patient's lab results. Discharge Plan Discharge Clinical Impression: Viral infection Patient Disposition: Home, Self-Care Condition: Stable Instructions: Antibiotic Form, Viral Syndrome (ED) Additional Instructions: Use [id number] medications to treat symptoms. Follow-up with primary care provider. Emergency department for new or worse symptoms Patient Language: Bulgarian Prescriptions: No Action multivitamin [Daily Multi-Vitamin] Tablet 1 tablet PO DAILY omeprazole 40 mg Capsule,Delayed Release(Dr/Ec) 40 mg PO DAILY amlodipine 10 mg Tablet 10 mg PO DAILY calcium carbonate-vitamin D3 [Calcium 500 With D] 500 mg(1,250mg) -400 unit Tablet 2 tablet PO DAILY cholecalciferol (vitamin D3) [Vitamin D3] 125 mcg (5,000 unit) Tablet 125 mcg PO DAILY meclizine 12.5 mg Tablet 12.5 mg PO QID PRN (Reason: Dizziness) Qty: 10 0RF Follow-up/Referrals: Myron,MD Hannon ([place]) [Primary Care Provider] - 2 Weeks Stand Alone Forms: Work/School Release IP Time of Disposition: 11:00
[2024-11-09 11:01] LABS: EDCOVIDSCREEN Negative (Negative)
[2024-11-09 11:03] LABS: EDINFLUASCREEN Negative (Negative); EDINFLUBSCREEN Negative (Negative); EDSTREPNEGPOS1 Negative (Negative)
== END 2024-11-09 11:15 | disposition home or self-care (01) ==
PROVIDERS: Emergency Provider Nurse Practitioner Family; PCP Internal Medicine
DX: B34.9 Viral infection, unspecified (principal); Z20.822 Contact with and (suspected) exposure to COVID-19; I10 Essential (primary) hypertension; K21.9 Gastro-esophageal reflux disease without esophagitis
CPT/HCPCS: 87081; 87426; 87804; 87880; 99213; G0463